=== PATIENT | female | born 1995 | race Asian ===

== ENCOUNTER 2019-02-16 08:48 | Emergency (ER) | payer OTHER ==
[~2019-02-16] VITALS: Ht 167.6 cm; Wt 64.9 kg
[2019-02-16 08:53] VITALS: Ht 167.6 cm; Wt 64.9 kg
[2019-02-16 10:01] LABS: BASOPHIL % 0.2 % (0-2); PLATELET COUNT 177 x10^3mcL (130-400); RED CELL DISTRIBUTION WIDTH 12.5 % (11.5-14.5)
[2019-02-16 10:10] LABS: CALCIUM 8.1 mg/dL (8.5-10.1); CARBON DIOXIDE 20.9 mmol/L (21-32); CHLORIDE SERUM 103 mmol/L (98-107); CREATININE SERUM 0.9 mg/dL (0.6-1.0); GFR1 > 60 mL/min; GLUCOSE SERUM 118 mg/dL (74-106); POTASSIUM SERUM 3.5 mmol/L (3.5-5.1); SODIUM SERUM 137 mmol/L (136-145)
[2019-02-16 10:15] LABS: ALKALINE PHOSPHATASE 38 U/L (46-116); ALT/SGPT 12 U/L (14-59); AST/SGOT 12 U/L (15-37); BILIRUBIN TOTAL 0.6 mg/dL (0.20-1.00); TOTAL PROTEIN, SERUM 7.4 g/dL (6.4-8.2)
[2019-02-16 10:16] LABS: ALBUMIN 3.2 g/dL (3.4-5.0)
[2019-02-16 10:16] LABS: UA SPECIFIC GRAVITY >=1.030 (1.005-1.035); microscopic required? YES
[2019-02-16 10:17] LABS: urine erythrocyte 2+ (NEGATIVE)
[2019-02-16 13:35] VITALS: BP 107/66
== END 2019-02-16 13:35 | disposition home or self-care (01) ==
LOC: ED 08:48
PROVIDERS: Emergency Medicine
DX: N10 Acute pyelonephritis (principal); R11.2 Nausea with vomiting, unspecified
CPT/HCPCS: 87804; J0696; J1885; J2405; J7030; Q0092